=== PATIENT | male | born 1960 | race Caucasian/White ===

== ENCOUNTER 2017-02-14 17:16 | Emergency (ER) | payer MEDICARE ==
[~2017-02-14] VITALS: Ht 152.4 cm; Wt 70.0 kg
[2017-02-14 17:19] VITALS: BP 124/72; PULSE 45; RESP 20; TEMP 97.4; O2SAT 97
[2017-02-14] MEDS ORDERED: MAGICADU2 SWISH-SWAL (17:39)
[2017-02-14] MEDS ORDERED: CLIN1CAP5 PO (17:39)
--- NOTE | 2017-02-14 17:40 | PD ---
HPI Chief Complaint: Oral / Dental Pain or Problem Time Seen by Provider: 17:28 Travel History International Travel<30 days: No Contact w/Intl Traveler<30days: No Traveled to known affect area: No History of Present Illness HPI Patient's a 56-year-old male who presents emergency Department with left-sided maxillary dental pain. Patient states that a few months ago he was scheduled to see an oral surgeon but fell on financial hardship and could not afford to go. He followed up one time but was unable to have the surgery secondary to the same but was prescribed Vicodin. He states is out of the Vicodin now. He states he called his dentist this afternoon but they were closed and came here. Patient requests pain medicine to "get him through the weekend". Denies any fever denies any facial swelling denies any neck pain or difficulty swallowing or difficulty breathing. PFSH Past Medical History Medical History: Denies Significant Hx Past Surgical History Surgical History: No Previous Surgery Social History Tobacco Use: Yes Allergies-Medications (Allergen,Severity, Reaction): Coded Allergies: No Known Allergies (Unverified , 02/14/17) Reported Meds & Prescriptions Reported Meds & Active Scripts Active Ibuprofen 600 Mg Tab 600 Mg PO Q6H PRN Clindamycin (Clindamycin HCl) 150 Mg Cap 300 Mg PO Q6H 7 Days Magic Mouthwash Adult Liq (Multi-Ingredient Mouthwash/Gargle) 120 Ml Susp 10 Ml SWISH-SWAL ACHS Each 5mL contains: Nystatin 200,000units, Diphenhydramine 4.25mg, Viscous Lidocaine 10mg, Ceron syrup 0.8 mL Review of Systems Except as stated in HPI: all other systems reviewed are Neg Physical Exam Narrative GENERAL: Well-developed well-nourished no apparent distress SKIN: Focused skin assessment warm/dry. HEAD: Atraumatic. Normocephalic. EYES: Pupils equal and round. No scleral icterus. No injection or drainage. ENT: No nasal bleeding or discharge. Mucous membranes pink and moist. Multiple dental caries, maxillary incisors are absent bilaterally. His culprit tooth is a left maxillary first molar which is worn down to the gumline. There are multiple molars on the left mandibular side which are likewise worn down to the gumline. No definitive abscess is seen. No facial swelling. No sublingual tenderness. NECK: Trachea midline. No JVD. No lymphadenopathy. CARDIOVASCULAR: Regular rate and rhythm. No murmur appreciated. RESPIRATORY: No accessory muscle use. Clear to auscultation. Breath sounds equal bilaterally. GASTROINTESTINAL: Abdomen soft, non-tender, nondistended. Hepatic and splenic margins not palpable. MUSCULOSKELETAL: No obvious deformities. No clubbing. No cyanosis. No edema. NEUROLOGICAL: Awake and alert. No obvious cranial nerve deficits. Motor grossly within normal limits. Normal speech. PSYCHIATRIC: Appropriate mood and affect; insight and judgment normal. Data Data Last Documented VS Vital Signs Date Time Temp Pulse Resp B/P Pulse Ox O2 Delivery O2 Flow Rate FiO2 02/14/17 17:19 97.4 45 20 124/72 97 Room Air Orders Oxycodone-Acetamin 5-325 Mg (Percocet (02/14/17 17:45) MDM Medical Decision Making Medical Screen Exam Complete: Yes Emergency Medical Condition: Yes Differential Diagnosis Dental caries, apical abscess, chronic dental pain. Narrative Course Patient was roomed in the emergency department, he requested a prescription for Vicodin to "get him through the weekend". I'm disinclined on at this request. The patient has had multiple opportunities to treat his chronic dental pain. I' m happy to give him a dose of pain medicine in the emergency department he was given Percocet. For home I have recommended ibuprofen as well as magic mouthwash. We'll place him on clindamycin as he is finished a dose of penicillin approximate week ago. Discussed with him need for follow-up with the oral surgeon as he was likely need multiple tooth extractions. Discussed with him return to ED criteria. Diagnosis Primary Impression: Chronic dental pain Additional Instructions: Please do not continue to put off your appointments with your dentist, you have multiple exposed nerve roots multiple teeth that will need to be removed. Until this happens your pain will be difficult to control. Med/Other Pt SpecificInfo: Prescription(s) given Scripts Ibuprofen 600 Mg [id number] Mg PO Q6H PRN (Pain/Inflammation) #30 TAB Ref 0 Prov:Manuel Sharma MD 02/14/17 Clindamycin 150 Mg [id number] Mg PO Q6H 7 Days Ref 0 Prov:Manuel Sharma MD 02/14/17 Wlmodtds-Xhqwhsbajzpfsrf-Dygdmgdic Liq (Magic Mouthwash Adult Liq)120 Ml Susp10 Ml SWISH-SWAL ACHS #120 ML Ref 0 Each 5mL contains: Nystatin 200,000units, Diphenhydramine 4.25mg, Viscous Lidocaine 10mg, Ceron syrup 0.8 mL Prov:Manuel Sharma MD 02/14/17 Disposition: 01 DISCHARGE HOME Condition: Stable Manuel Sharma MD February 14, 2017 17:40
[2017-02-14] MEDS ORDERED: oxyCODONE/ACETAMINOPHEN 5 MG/325 MG TAB PO ONE (17:45)
[2017-02-14] MEDS ORDERED: IBUP-232 PO (17:56)
== END 2017-02-14 17:50 | disposition home or self-care (01) ==
LOC: NEPD 17:16
DX: K08.89 Other specified disorders of teeth and supporting structures (principal); Z72.0 Tobacco use
CPT/HCPCS: 99283

== ENCOUNTER 2017-06-21 12:02 | Emergency (ER) | payer MEDICARE ==
[~2017-06-21] VITALS: Ht 182.9 cm; Wt 100.0 kg
[~2017-06-21 12:02] MED LIST: CLIN1CAP5 PO; IBUP-232 PO; MAGICADU2 SWISH-SWAL
[2017-06-21 12:08] VITALS: BP 115/77; PULSE 76; RESP 18; TEMP 98.1; O2SAT 99
--- NOTE | 2017-06-21 12:14 | PD ---
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 Worsened at night. Treated with NSAIDs and OTC muscle rubs with no improvement of pain. Saw the PCP care who told him to "wear a brace and see a hand specialist." Vitals reviewed. Patient seen in triage, awaiting bed placement. Kira Blunt Jun 21, 2017 12:14
[2017-06-21] MEDS ORDERED: KLON2TAB PO (13:14)
[2017-06-21] MEDS ORDERED: ADDE20 PO (13:14)
[2017-06-21] MEDS ORDERED: SERO300T PO (13:14)
[2017-06-21] MEDS ORDERED: LISI-515 PO (13:14)
[2017-06-21] MEDS ORDERED: METO50TA PO (13:14)
--- NOTE | 2017-06-21 13:52 | PD ---
HPI Chief Complaint: Injury Time Seen by Provider: 13:14 Travel History International Travel<30 days: No Contact w/Intl Traveler<30days: No Traveled to known affect area: No History of Present Illness HPI 57-year-old male with chief complaint of left hand pain 1 month. Patient reports mild paresthesias of the fourth and fifth digit. He denies any injury. He reports the pain is worse at night. He has attempted OTC Aleve and BenGay with no relief. He reports he saw his PCP who referred him to see a hand surgeon which she has not done. He reports the pain is constant worse at night. He denies weakness in the extremity. PFSH Past Medical History ADD: Yes Anxiety: Yes Depression: Yes Cardiovascular Problems: Yes Diminished Hearing: No Hypertension: Yes Psychiatric: Yes Tetanus Vaccination: < 5 Years Influenza Vaccination: No Past Surgical History Surgical History: No Previous Surgery Social History Alcohol Use: No Tobacco Use: No Substance Use: No Allergies-Medications (Allergen,Severity, Reaction): Coded Allergies: No Known Allergies (Unverified , 02/14/17) Reported Meds & Prescriptions Reported Meds & Active Scripts Active Reported Adderall (Amphetamine-Dextroamphetamine) 20 Mg Tab 20 Mg PO BID Avoid late evening doses. Space doses at least 4 to 6 hours if more than once/day dosing. Seroquel (Quetiapine Fumarate) 300 Mg Tab 300 Mg PO BID Klonopin (Clonazepam) 2 Mg Tab 2 Mg PO BID Metoprolol Tartrate 50 Mg Tab 50 Mg PO BID Lisinopril 20 Mg Tab 20 Mg PO DAILY Review of Systems Except as stated in HPI: all other systems reviewed are Neg Physical Exam Narrative GENERAL: Well-nourished, well-developed patient. SKIN: Focused skin assessment warm/dry. HEAD: Normocephalic. EYES: No scleral icterus. No injection or drainage. NECK: Supple, trachea midline. No JVD or lymphadenopathy. MUSCULOSKELETAL: No cyanosis, or edema. LEFT HAND: reported pain in the 4th & 5th digits & palm. The area is non tender. Patient has full range of motion and normal sensation within the digit. Normal sensation with 2-point formation. Brisk cap refill. Data Data Last Documented VS Vital Signs Date Time Temp Pulse Resp B/P (MAP) Pulse Ox O2 Delivery O2 Flow Rate FiO2 06/21/17 12:08 98.1 76 18 115/77 (90) 99 [facility] Medical Decision Making Medical Screen Exam Complete: Yes Emergency Medical Condition: Yes Differential Diagnosis Left hand pain-carpal tunnel, ulnar nerve pain, arthritis Narrative Course 57-year-old male presents emergency department for evaluation of nontraumatic left hand pain. He has been seen by his PCP and instructed to follow-up with hand surgeon for which patient has not complied. He reports no symptom relief with [id number] Tylenol. His physical exam is benign. The hand is nontender his reported pain in the fourth and fifth digit. Full range of motion and normal sensation. Diagnosis Primary Impression: Hand pain, left Referrals: Orthopedist Additional Instructions: take over the counter motrin 600-800 mg of motrin every 6-8 hours make an appointment for follow up with the hand surgeon Disposition: 01 DISCHARGE HOME Condition: Stable Sherrill Soto Jun 21, 2017 13:52
[2017-06-21 14:12] VITALS: BP 120/77; TEMP 97.8
[2017-06-21] MEDS ORDERED: KETOROLAC TROMETHAMINE 60 MG/2 ML (IM) VIAL IM ONE (14:15)
== END 2017-06-21 14:13 | disposition home or self-care (01) ==
LOC: NEPD 12:02
DX: M79.642 Pain in left hand (principal); R20.9 Unspecified disturbances of skin sensation; F41.9 Anxiety disorder, unspecified; F32.9 Major depressive disorder, single episode, unspecified; I10 Essential (primary) hypertension; Z79.899 Other long term (current) drug therapy
CPT/HCPCS: 96372; 99284; J1885